=== PATIENT | female | born 2000 | race Caucasian/White ===

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

== ENCOUNTER 2023-10-30 20:58 | Emergency (ER) | payer OTHER ==
[2023-10-30 21:11] VITALS: BP 116/50; PULSE 78; RESP 18; TEMP 98; BMI 37.8
[2023-10-30] MEDS ORDERED: KETOROLAC TROMETHAMINE 30 MG/1 ML VIAL ONE (21:53)
[2023-10-30] MEDS ORDERED: LIDOCAINE 4% PATCH TP ONE (21:53)
[2023-10-30] MEDS ORDERED: DEXAMETHASONE SOD PHOSPHATE 10 MG/1 ML VIAL ONE (21:53)
[2023-10-30] MEDS: KETOROLAC TROMETHAMINE 30 MG/1 ML VIAL IM ONE (22:01)
[2023-10-30] MEDS: DEXAMETHASONE SOD PHOSPHATE 10 MG/1 ML VIAL IM ONE (22:01)
[2023-10-30] MEDS: LIDOCAINE 4% PATCH TP ONE (22:01)
== END 2023-10-30 22:36 | disposition home or self-care (01) ==
LOC: JER 20:58 → JERFT 20:58
PROC: 3E023GC Introduction of Other Therapeutic Substance into Muscle, Percutaneous Approach (ICD-10-PCS; principal; 2023-10-30)
PROC: 3E023GC Introduction of Other Therapeutic Substance into Muscle, Percutaneous Approach (ICD-10-PCS; 2023-10-30)
DX: M54.41 Lumbago with sciatica, right side (principal)
CPT/HCPCS: 99284-25; J1100